=== PATIENT | male | born 1990 ===

== ENCOUNTER 2023-11-23 11:26 | Emergency (ER) | payer SELFPAY ==
[2023-11-23 12:02] VITALS: BP 175/107; PULSE 89; RESP 16; TEMP 36.7; O2SAT 97; BMI 20.3
== END 2023-11-23 23:39 | disposition left against medical advice (07) ==
PROVIDERS: Emergency Provider Emergency Medicine
DX: R10.9 Unspecified abdominal pain (principal); K59.00 Constipation, unspecified; G47.00 Insomnia, unspecified
CPT/HCPCS: 36415; 80048; 80076; 85025; 99281; 99283